=== PATIENT | male | born 1950 | race Caucasian/White ===

== ENCOUNTER 2016-10-15 07:44 | Emergency (ER) | payer MEDICARE ==
[2012-10-19 13:30] VITALS: BMI 27.2
[~2016-10-15 07:44] MED LIST: ABILIFY10 MG PO; AMOXICILLIN500 M1 PO; LEVAQUIN500 MG PO
== END 2016-10-15 08:55 | disposition home or self-care (01) ==
LOC: D.ER 07:44
DX: S83.92XA Sprain of unspecified site of left knee, initial encounter (principal); X58.XXXA Exposure to other specified factors, initial encounter; Y93.41 Activity, dancing; Y92.89 Other specified places as the place of occurrence of the external cause; F41.9 Anxiety disorder, unspecified